=== PATIENT | female | born 1945 | race Caucasian/White ===

== ENCOUNTER → 2018-09-17 12:40 | Outpatient (CLI) | payer OTHER, SELFPAY | PROVIDERS: PCP Nurse Practitioner Family; Visit Provider Nurse Practitioner Family | DX: M81.0 Age-related osteoporosis without current pathological fracture (principal); Z78.0 Asymptomatic menopausal state; E07.9 Disorder of thyroid, unspecified; Z82.62 Family history of osteoporosis; Z87.891 Personal history of nicotine dependence | CPT/HCPCS: 77080 ==

== ENCOUNTER → 2018-12-09 10:55 | Outpatient (CLI) | payer OTHER, SELFPAY ==
--- NOTE | 2018-12-09 | DI.MG.S_ITS ---
BILATERAL DIGITAL SCREENING MAMMOGRAM 3D/2D WITH CAD: 12/09/2018 CLINICAL: Routine screening. Comparison is made to exams dated: 01/02/2017 mammogram, 08/19/2012 mammogram, and 08/17/2011 mammogram - [facility]. The tissue of both breasts is heterogeneously dense. This may lower the sensitivity of mammography. Current study was also evaluated with a Computer Aided Detection (CAD) system. No significant masses, calcifications, or other findings are seen in either breast. There has been no significant interval change. IMPRESSION: NEGATIVE There is no mammographic evidence of malignancy. A 1 year screening mammogram is recommended. This exam was interpreted at Station ID: [id number]. NOTE: For mammograms, a report in lay terms will be sent to the patient. Approximately 15% of breast malignancies will not be visualized mammographically. In the management of a palpable breast mass, a negative mammogram must not discourage biopsy of a clinically suspicious lesion. Electronically Signed By: Keaton mejia/gosia:12/09/2018 12:12:54 letter sent: Normal Exam ACR BI-RADS Category 1: Negative [id number]
== END ==
PROVIDERS: PCP Nurse Practitioner Family; Visit Provider Nurse Practitioner Family
DX: Z12.31 Encounter for screening mammogram for malignant neoplasm of breast (principal)
CPT/HCPCS: 77063; 77067

== ENCOUNTER → 2018-12-16 08:22 | Outpatient (CLI) | payer OTHER, SELFPAY ==
[2018-12-16 09:25] LABS: Albumin 4.7 g/dL (3.5-5.0); Estimated Glomerular Filt Rate > 60.0 mL/min (>60)
[2018-12-16 10:57] LABS: Vitamin D 25 Hydroxy (D3) 66.9 ng/mL (30.0-100.0)
[2018-12-16 11:06] LABS: Free T4, Direct Thyroxine 1.26 ng/dL (0.78-2.19)
[2018-12-16 12:16] LABS: Collection Time Urine 24 Hours; Creatinine Urine Random 55.3 mg/dL; Patient Height Urine 68 inches; Patient Weight Urine 152 lbs; Total Volume Urine 1950 mL
[2018-12-16 15:24] LABS: Creat Clearance, Corrected 89.3 mL/MIN; Creatinine Clearance Urine 93.6 mL/MIN
[2018-12-16 15:57] LABS: Calcium 24 Hour Urine 228 mg/day (100-300); Calcium Urine Random 11.7; Collection Time Urine 24 Hours; Total Volume Urine 1950 mL
[2018-12-18 13:44] LABS: Ionized Calcium 5.2 mg/dL (4.8-5.6)
[2018-12-18 16:54] LABS: N-Telopeptide Serum < 3.4 nM BCE (6.2-19.0)
[2018-12-20 15:45] LABS: Parathyroid Hormone Int 13 pg/mL (14-64)
== END ==
PROVIDERS: Family Provider Nurse Practitioner Family; PCP Nurse Practitioner Family; Visit Provider Internal Medicine Endocrinology, Diabetes & Metabolism
DX: M81.0 Age-related osteoporosis without current pathological fracture (principal); E03.9 Hypothyroidism, unspecified
CPT/HCPCS: 36415; 82040; 82306; 82310; 82330; 82340; 82523; 82565; 82575; 83970; 84439; 84443

== ENCOUNTER → 2019-04-15 09:33 | Outpatient (CLI) | payer OTHER, SELFPAY ==
--- NOTE | 2019-04-15 10:14 | DI.CT.S_ITS ---
PROCEDURE: CT ABDOMEN W CON INDICATIONS: Epigastric pain TECHNIQUE: After the administration of oral and intravenous contrast, 5 mm thick sections acquired from the diaphragms to the iliac crests. 5 mm thick coronal and sagittal reformats were acquired. For radiation dose reduction, the following was used: automated exposure control, adjustment of mA and/or kV according to patient size. COMPARISON: None. FINDINGS: Image quality: Excellent. Lung bases: Lung bases are clear. Heart size is normal. Solid organs: Liver is normal in size and enhancement. Gallbladder appears normal. Biliary system is non dilated. Pancreas enhances normally. Spleen is normal in size and enhancement. No adrenal nodules. Kidneys are normal in size, without hydronephrosis. Peritoneum and bowel: Contrast enhanced bowel loops appear normal in caliber. No free fluid or air. Nodes and vessels: No retroperitoneal or mesenteric adenopathy by size criteria. Aorta and inferior vena cava are normal in size. Bones: No suspicious bony lesions. No vertebral body compression fractures. Miscellaneous: No ventral hernias. IMPRESSION: The large and small bowel visualized appears normal. The pancreas appears free of mass or inflammation. No urinary tract abnormality is seen. Overall, a source of epigastric pain is not identified by this examination. Dictated by: Haja Yates M.D. on 04/15/2019 at 13:25 Approved by: Haja Yates M.D. on 04/15/2019 at 13:27
== END ==
PROVIDERS: Family Provider Nurse Practitioner Family; PCP Nurse Practitioner Family; Referring Provider Internal Medicine; Visit Provider Internal Medicine
DX: R10.13 Epigastric pain (principal)
CPT/HCPCS: 74170; Q9967

== ENCOUNTER 2019-07-29 10:55 | Emergency (ER) | payer OTHER, SELFPAY ==
[2019-07-29 11:05] VITALS: BP 118/59; PULSE 85; RESP 20; TEMP 36.3; O2SAT 98; BMI 24.3
--- NOTE | 2019-07-29 11:07 | DI.CT.S_ITS ---
PROCEDURE: CT HEAD/BRAIN WO CON INDICATIONS: fall, landed on head and right elbow TECHNIQUE: Noncontrast 4.5 mm thick angled axial sections acquired from the foramen magnum to the vertex, with coronal and sagittal reformats. For radiation dose reduction, the following was used: automated exposure control, adjustment of mA and/or kV according to patient size. COMPARISON: None. FINDINGS: Image quality: Excellent. CSF spaces: Basal cisterns are patent. No extra-axial fluid collections. The ventricles are symmetric in size and shape. Brain: No intracranial bleeds or masses. There is cerebral volume loss for age. There are minimal periventricular and deep white matter chronic small vessel ischemic changes. There is intracranial internal carotid artery atherosclerosis. Skull and face: Calvarium and visualized facial bones appear intact, without suspicious lesions. Sinuses: Visualized sinuses and mastoids are clear. IMPRESSION: 1. No acute intracranial abnormalities. No intracranial bleed or skull fracture. Dictated by: Marlena Neri M.D. on 07/29/2019 at 11:23 Approved by: Marlena Neri M.D. on 07/29/2019 at 11:27
--- NOTE | 2019-07-29 11:07 | DI.RAD.S_ITS ---
PROCEDURE: XR ELBOW RT MIN 3V INDICATIONS: fall, landed on head and right elbow TECHNIQUE: 4 views of the elbow were acquired. COMPARISON: None. FINDINGS: Bones: There is an impacted and comminuted radial head fracture. No dislocation is evident. No additional fractures are appreciated. Soft tissues: A moderate-sized elbow joint effusion is present. No suspicious soft tissue calcifications. IMPRESSION: Impacted radial head fracture. Dictated by: Everette Cardona M.D. on 07/29/2019 at 10:28 Approved by: Everette Cardona M.D. on 07/29/2019 at 10:30
--- NOTE | 2019-07-29 11:45 | ED_ITS ---
HPI - Fall <ANN CastilloCITIZENS BAPTIST - Last Filed: 07/29/19 15:44> General Chief Complaint: Fall Stated Complaint: Fell on sidewalk,hurt right elbow and head Time Seen by Provider: 07/29/19 11:29 Source: patient Mode of arrival: Ambulatory Limitations: no limitations History of Present Illness HPI Narrative: The patient is a 74-year-old female former smoker who denies pertinent medical history presents with a chief complaint of a ground level fall. She states she was working in her garden, tripped on a rock, landed on her left arm and then hit her head on pavement. She did not lose consciousness, but felt very woozy, lightheaded and nauseous with no vomiting after the incident. She denies any neck pain or back pain. She denies any numbness or tingling. She does have a small laceration above her right eye. She states that her right elbow hurts and she cannot fully extend it. She has not taken anything for pain does not want anything for pain at this point time. She denies any chest pain, shortness of breath or hip pain. She ambulated into the emergency department on her own accord. She state her vision is fine. Her nausea has resolved. Modified trauma was activated on the patient given her age and mechanism of injury Related Data Previous Rx's Medication Instructions Recorded hydrocodone-acetaminophen [Upton] 1 tab PO Q4-6H PRN #10 tab 07/29/19 Review of Systems <MORENITA Castillo - Last Filed: 07/29/19 15:44> Review of Systems Narrative: GENERAL: Denies chills, fatigue, malaise, fever, sweats. HEENT: Denies sinus pain, ear pain, sore throat, difficulty swallowing, d izziness. RESPIRATORY: Denies dyspnea, cough, wheezing, hemoptysis, sputum. CARDIOVASCULAR: Denies chest pain, palpitations, orthopnea, edema, GASTROINTESTINAL: Denies nausea, vomiting, abdominal pain, diarrhea, constipation, melena. : Denies dysuria, frequency, incontinence, hematuria, urinary retention. MUSCULOSKELETAL: See HPI SKIN: See HPI NEUROLOGIC: See HPI PSYCHIATRIC: No concerning psychosocial issues. 12 point review of systems is negative except for those stated above Patient History <MORENITA Castillo - Last Filed: 07/29/19 15:44> Social History Smoking Status: Former smoker Smoking Status: Former smoker alcohol intake frequency: holidays/special occasions only Substance Use Type: does not use Exam <LAQUITA Castillo - Last Filed: 07/29/19 15:44> Narrative Exam Narrative: GENERAL: This is a well-nourished, well-developed patient, in no acute distress HEAD: Atraumatic. Normocephalic. No temporal or scalp tenderness. EYES: Pupils equal round and reactive. Extraocular motions intact. No scleral icterus. No injection or drainage. ENT: Nose without bleeding, purulent drainage or septal hematoma. Airway patent. NECK: Trachea midline. No JVD or lymphadenopathy. Supple, nontender, no me ningeal signs. CARDIOVASCULAR: Regular rate and rhythm RESPIRATORY: Clear to auscultation. Breath sounds equal bilaterally. No wheezes, rales, or rhonchi. No cough. No increased respiratory effort. No accessory muscle use. GASTROINTESTINAL: Abdomen soft, non-tender, nondistended. No hepato- splenomegaly, or palpable masses. No guarding. EXTREMITIES: General pain to palpation right elbow. Decreased flexion and extension right elbow. No pain to palpation right shoulder, clavicle wrist or hand. No snuffbox tenderness to palpation. BACK: Nontender without deformity or crepitance. No flank tenderness. No pain to CT or L-spine palpation. NEURO: AOx3. SKIN: 2 mm laceration noted lateral to right eye. Cleansed and dressed by nursing Steri-Strips. Initial Vital Signs Initial Vital Signs: Vital Signs Temperature 97.3 F L 07/29/19 11:05 Pulse Rate 85 07/29/19 11:05 Respiratory Rate 07/29/19 11:05 Blood Pressure 118/59 L 07/29/19 11:05 Pulse Oximetry 98 07/29/19 11:05 <Malissa Clinton DO - Last Filed: 07/29/19 19:23> Initial Vital Signs Initial Vital Signs: Vital Signs Temperature 97.3 F L 07/29/19 11:05 Pulse Rate 85 07/29/19 11:05 Respiratory Rate 07/29/19 11:05 Blood Pressure 118/59 L 07/29/19 11:05 Pulse Oximetry 98 07/29/19 11:05 Procedures <Claudia MORENITA Galo - Last Filed: 07/29/19 15:44> Orthopedic Splinting/Casting Injury #1: Side: right Upper Extremity Injury Location: elbow Upper Extremity Immobilizer: sling/shoulder immobilizer and posterior splint Post splinting neuro exam: intact Post splinting vascular exam: intact Scores <Claudia LAQUITA Galo - Last Filed: 07/29/19 15:44> GCS Melquiades coma scale eye opening: Spontaneous Melquiades coma scale verbal response: Orientated Rogers coma scale motor response: Obey commands Melquiades coma scale total score: 15 Nexus Score for C-Spine Focal Neurologic deficit present: No Midline spinal tenderness present: No Altered level of conciousness present: No Intoxication present: No Distracting Injury Present: No Nexus Criteria for C-spine: 0 Course <Claudia LAQUITA Galo - Last Filed: 07/29/19 15:44> Orders Ordered: ED Orders 07/29/19 11:07 CT head/brain wo con Stat XR elbow RT min 3V Stat 07/29/19 13:57 CT UE RT wo con Stat Discontinued Medications Hydrocodone Bitart/Acetaminophen (Upton 5/325) 1 tab PO NOW ONE Stop: 07/29/19 13:45 Last Admin: 07/29/19 14:04 Dose: 1 tab Documented by: TOMASZ Diphtheria/Tetanus/Acell Pertussis (Adacel) 0.5 ml IM .ONCE ONE Stop: 07/29/19 11:38 Last Admin: 07/29/19 12:32 Dose: 0.5 ml Documented by: TOMASZ Vital Signs Vital signs: Vital Signs - 8 hr 07/29/19 12:08 07/29/19 12:38 07/29/19 14:00 Pulse Rate 87 69 72 Respiratory Rate 14 12 17 Blood Pressure [Right Arm] 99/55 L 101/59 L 118/59 L Pulse Oximetry 96 96 100 <Malissa Clinton DO - Last Filed: 07/29/19 19:23> Orders Ordered: ED Orders 07/29/19 11:07 CT head/brain wo con Stat XR elbow RT min 3V Stat 07/29/19 13:57 CT UE RT wo con Stat Discontinued Medications Hydrocodone Bitart/Acetaminophen (Upton 5/325) 1 tab PO NOW ONE Stop: 07/29/19 13:45 Last Admin: 07/29/19 14:04 Dose: 1 tab Documented by: TOMASZ Diphtheria/Tetanus/Acell Pertussis (Adacel) 0.5 ml IM .ONCE ONE Stop: 07/29/19 11:38 Last Admin: 07/29/19 12:32 Dose: 0.5 ml Documented by: TOMASZ Vital Signs Vital signs: Vital Signs - 8 hr 07/29/19 12:08 07/29/19 12:38 07/29/19 14:00 Pulse Rate 87 69 72 Respiratory Rate 14 12 17 Blood Pressure [Right Arm] 99/55 L 101/59 L 118/59 L Pulse Oximetry 96 96 100 MDM - Fall <MORENITA CastilloBC - Last Filed: 07/29/19 15:44> Imaging Data CT scan - head: Radiologist's Impression: [address] [place] [id number] Scan Report Signed Patient: Otilia Saavedra#: [id number] : 7Acct:[id number] Age/Sex: 74 / FDate of Service: 07/29/19 Loc: ED Accession Number: [id number] Procedure: CT head/brain wo con Ordering Provider: Malissa Clitnon D.O. PROCEDURE: CT HEAD/BRAIN WO CON INDICATIONS: fall, landed on head and right elbow TECHNIQUE: Noncontrast 4.5 mm thick angled axial sections acquired from the foramen magnum to the vertex, with coronal and sagittal reformats. For radiation dose reduction, the following was used: automated exposure control, adjustment of mA and/or kV according to patient size. COMPARISON: None. FINDINGS: Image quality: Excellent. CSF spaces: Basal cisterns are patent. No extra-axial fluid collections. The ventricles are symmetric in size and shape. Brain: No intracranial bleeds or masses. There is cerebral volume loss for age. There are minimal periventricular and deep white matter chronic small vessel ischemic changes. There is intracranial internal carotid artery atherosclerosis. Skull and face: Calvarium and visualized facial bones appear intact, without suspicious lesions. Sinuses: Visualized sinuses and mastoids are clear. IMPRESSION: 1. No acute intracranial abnormalities. No intracranial bleed or skull fracture. Dictated by: Marlena Neri M.D. on 07/29/2019 at 11:23 Approved by: Marlena Neri M.D. on 07/29/2019 at 11:27 Extremity x-ray #1: Radiologist's Impression: [address] [place] [id number] XRay Report Signed Patient: Otilia Saavedra#: [id number] : 7At:[id number] Age/Sex: 74 / FDate of Service: 07/29/19 Loc: ED Accession Number: [id number] Procedure: XR elbow RT min 3V Ordering Provider: Malissa Clinton D.O. PROCEDURE: XR ELBOW RT MIN 3V INDICATIONS: fall, landed on head and right elbow TECHNIQUE: 4 views of the elbow were acquired. COMPARISON: None. FINDINGS: Bones: There is an impacted and comminuted radial head fracture. No dislocation is evident. No additional fractures are appreciated. Soft tissues: A moderate-sized elbow joint effusion is present. No suspicious soft tissue calcifications. IMPRESSION: Impacted radial head fracture. Dictated by: Everette Cardona M.D. on 07/29/2019 at 10:28 Approved by: Everette Cardona M.D. on 07/29/2019 at 10:[address]: Radiologist's Impression: [address] [place] [id number] Scan Report Signed Patient: Otilia Saavedra#: [id number] : 7Acct:[id number] Age/Sex: 74 / FDate of Service: 07/29/19 Loc: ED Accession Number: [id number] Procedure: CT UE RT wo con Ordering Provider: Claudia Galo PROCEDURE: CT UE RT WO CON INDICATIONS: complex radial fx TECHNIQUE: Noncontrast 3 mm axial sections acquired of the right elbow, with coronal and sagittal reformats. COMPARISON: [facility], , XR ELBOW RT MIN 3V, 07/29/2019, 10:59. FINDINGS: Image quality: Excellent. Bones: There is a comminuted fracture of the radial head with displacement and impaction. In addition, there is a prominent fracture of the capitellum with no significant displacement. Soft tissues: There is soft tissue edema. There is [id number] elbow effusion. IMPRESSION: 1. Comminuted fracture of the radial head with displacement and impaction. 2. Comminuted nondisplaced fracture of the capitellum. 3. Small to moderate elbow joint effusion. Dictated by: Marlena Neri M.D. on 07/29/2019 at 14:38 Approved by: Marlena Neri M.D. on 07/29/2019 at 14:56 MDM Narrative Medical decision making narrative: The patient is a 74-year-old female who presents with a chief complaint of elbow pain and hitting her head after ground level trip and fall today. Her head CT is negative, however I do believe she has a concussion given her symptoms of nausea, no vomiting and slight dizziness. I discussed at length brain rest. Her elbow was found to have a complex radial head fracture, I spoke with Dr. Bone from [facility] who kindly viewed the films and requested a CT. This was ordered accordingly. The patient was placed in a posterior splint and given a sling. She felt much improved after the pain medication given as documented. I discussed at length the importance of following up with primary care provider as well as Dr. Bone. Discussed coming back to the ER for any acute concerns. Patient has no questions or concerns upon discharge and states understanding of return precautions as well as follow-up care Discharge Plan Departure Patient Disposition: Home Clinical Impression: Fall from ground level, Laceration Concussion without loss of consciousness Qualifiers: Encounter type: initial encounter Qualified Code(s): S06.0X0A - Concussion without loss of consciousness, initial encounter Fracture of head of right radius Qualifiers: Encounter type: initial encounter Fracture type: closed Fracture alignment: displaced Qualified Code(s): S52.121A - Displaced fracture of head of right radius, initial encounter for closed fracture Discharge Date/Time: 07/29/19 15:06 Instructions: How to Use a Sling, DI for Concussion, DI for Elbow Fracture, DI for Laceration Repair Steri-Strips, How To Perform RICE (Rest, Ice, Compress, Elevate), How to Prevent Falls, How to Take Care of Your Splint Activity Restrictions/Additional Instructions: Thank you for trusting us with your care today I am sorry that you are injured. We placed a Steri-Strip on your laceration, updated your tetanus, found an elbow fracture, and did a CT scan of your head. This has no acute bleeding but I do believe you have a concussion given her symptoms Please follow-up with Dr. Bone from [facility] regarding your elbow fracture. I have included her contact information in this handout. Please use rest ice compression elevation. I sent a prescription of hydrocodone with acetaminophen to [facility]. I have given you a prescription of a narcotic for pain. Be aware that this can be constipating and sedating. I encouraged taking with a stool softener, pushing fluids and fiber. Do not take and drive, operate heavy machinery, etc. Do not combine it with any other sedating substances such as alcohol. The combination of narcotics and alcohol and/or other sedatives can be lethal. Please come back to the emergency department for any acute concerns. I also suggest following up with primary care provider Prescriptions: New hydrocodone-acetaminophen [Upton] 5-325 mg tablet 1 tab PO Q4-6H PRN (Reason: pain) Qty: 10 RF: 0 Referrals: [facility] [Provider Group] Caitlin Kumar ARNP [Primary Care Provider] - Melissa Bone MD [Physician] - <Malissa Clinton DO - Last Filed: 07/29/19 19:23> [facility] I was immediately available in the department for consultation. Documentation has been reviewed. I agree with assessment and plan.
[2019-07-29 12:08] VITALS: BP 99/55; PULSE 87; RESP 14; O2SAT 96
[2019-07-29] MEDS: TET,DIPH,PERTUSS(ACELL),VAC/PF 0.5 ML SYRINGE IM (12:32)
[2019-07-29 12:38] VITALS: BP 101/59; PULSE 69; RESP 12; O2SAT 96
--- NOTE | 2019-07-29 12:45 | PC.NURSE ---
patient in room. wound has been cleaned and dressed with a steri strip. It is no longer bleeding.
--- NOTE | 2019-07-29 13:57 | DI.CT.S_ITS ---
PROCEDURE: CT UE RT WO CON INDICATIONS: complex radial fx TECHNIQUE: Noncontrast 3 mm axial sections acquired of the right elbow, with coronal and sagittal reformats. COMPARISON: [facility], CR, XR ELBOW RT MIN 3V, 07/29/2019, 10:59. FINDINGS: Image quality: Excellent. Bones: There is a comminuted fracture of the radial head with displacement and impaction. In addition, there is a prominent fracture of the capitellum with no significant displacement. Soft tissues: There is soft tissue edema. There is jyphh-er-llvyznfa elbow effusion. IMPRESSION: 1. Comminuted fracture of the radial head with displacement and impaction. 2. Comminuted nondisplaced fracture of the capitellum. 3. Small to moderate elbow joint effusion. Dictated by: Marlena Neri M.D. on 07/29/2019 at 14:38 Approved by: Marlena Neri M.D. on 07/29/2019 at 14:56
[2019-07-29 14:00] VITALS: BP 118/59; PULSE 72; RESP 17; O2SAT 100
[2019-07-29] MEDS: HYDROCODONE/ACET 5/325 TABLET 1 TAB PO (14:04)
== END 2019-07-29 15:06 | disposition home or self-care (01) ==
PROVIDERS: Emergency Provider Nurse Practitioner Family; Family Provider Nurse Practitioner Family; PCP Nurse Practitioner Family
DX: S06.0X0A Concussion without loss of consciousness, initial encounter (principal); S52.121A Displaced fracture of head of right radius, initial encounter for closed fracture; S01.111A Laceration without foreign body of right eyelid and periocular area, initial encounter; M25.521 Pain in right elbow; W01.0XXA Fall on same level from slipping, tripping and stumbling without subsequent striking against object, initial encounter; Z23 Encounter for immunization
CPT/HCPCS: 29105; 70450; 73080; 73200; 90471; 99284; 90715

== ENCOUNTER → 2019-08-01 10:12 | Outpatient (CLI) | payer OTHER, SELFPAY ==
[2019-08-01 11:35] LABS: Add Manual Diff / Slide Review NO; Basophils Absolute Auto 0 /uL (0-100); Basophils Percent Auto 0.4 % (0-2); Eosinophils Absolute Auto 300 /uL (0-450); Eosinophils Percent Auto 3.4 % (2-4); Hematocrit 37.3 % (36-46); Hemoglobin 12.8 g/dL (12.0-16.0); Lymphocytes Absolute Auto 1000 /uL (1100-4500); Lymphocytes Percent Auto 13.5 % (25-40); Mean Corpuscular HGB Conc 34.4 % (30-36); Mean Corpuscular Hemoglobin 30.7 PG (26-34); Mean Corpuscular Volume 89.1 fL (80-100); Monocytes Absolute Auto 700 /uL (0-900); Monocytes Percent Auto 8.8 % (3-14); Neutrophils Absolute Auto 5500 /uL (1500-7000); Neutrophils Percent Auto 73.9 % (50-75); Platelet Count 268 X10^3/uL (150-400); Red Blood Cell Count 4.19 X10^6/uL (4.0-5.2); Red Cell Distribution Width 13.3 % (11.6-14.8); White Blood Cell Count 7.5 X10^3/uL (4.5-11.0)
[2019-08-01 12:06] LABS: Blood Urea Nitrogen 18 mg/dL (7-17); Calcium 9.4 mg/dL (8.4-10.2); Carbon Dioxide 31 mmol/L (22-32); Chloride 101 mmol/L (98-107); Estimated Glomerular Filt Rate > 60.0 mL/min (>60); Glucose 96 mg/dL (80-110); HEMOLYSIS < 15 (0-50); Potassium 4.9 mmol/L (3.4-5.1); Sodium 136 mmol/L (137-145)
== END ==
PROVIDERS: Family Provider Nurse Practitioner Family; PCP Nurse Practitioner Family; Referring Provider Orthopaedic Surgery; Visit Provider Orthopaedic Surgery
DX: Z01.818 Encounter for other preprocedural examination (principal); Z01.812 Encounter for preprocedural laboratory examination
CPT/HCPCS: 36415; 80048; 85025; 93005

== ENCOUNTER → 2019-08-05 15:17 | Outpatient (CLI) | payer OTHER, SELFPAY ==
[2019-08-06 12:18] LABS: COVID19 Sendout Not Detected (Not Detect)
== END ==
PROVIDERS: Family Provider Nurse Practitioner Family; PCP Nurse Practitioner Family; Visit Provider Physician Assistant
DX: Z01.812 Encounter for preprocedural laboratory examination (principal)
CPT/HCPCS: 87635

== ENCOUNTER 2019-08-08 08:38 | Day surgery (SDC) | payer OTHER, SELFPAY ==
[2019-08-05 14:57] VITALS: BMI 24.5
[2019-08-08] VITALS (11 sets, daily range): BP systolic 108–138; BP diastolic 47–70; PULSE 67–80; RESP 10–16; TEMP 35.8–36.8; O2SAT 92–99; BMI 24.5
--- NOTE | 2019-08-08 | DI.RAD.S_ITS ---
PROCEDURE: XR ELBOW RT MIN 3V INDICATIONS: ELBOW REPAIR TECHNIQUE: 3 views of the elbow were acquired. COMPARISON: [facility], CT, CT UE RT WO CON, 07/29/2019, 13:53. [facility], CR, XR ELBOW RT MIN 3V, 07/29/2019, 10:59. FINDINGS: Bones: Interval radial head miracle-prosthesis. Prosthesis is in expected position. Capitellar fracture seen on the CT is not well appreciated. No dislocations. No suspicious bony lesions. Soft tissues: Elbow joint effusion is present. Postsurgical change. IMPRESSION: Satisfactory appearance of the radial head miracle-prosthesis. Dictated by: Joseph Raymundo M.D. on 08/08/2019 at 13:09 Approved by: Joseph Raymundo M.D. on 08/08/2019 at 13:12
--- NOTE | 2019-08-08 09:17 | SUR.PREOP ---
states that her depression is doing well since she began medication many years ago; states she is happier as she gets older, ie lack of work related stresses.
[2019-08-08] MEDS: LACTATED RINGERS 1,000 ML 42 ML IV ×2 (09:19→13:17)
--- NOTE | 2019-08-08 09:47 | PM.PREOP ---
Pre-operative Note COVID-19 COVID-19 status: Negative Interval Note History & Physical reviewed/Exam performed by Physician: Yes Changes to H&P: No H&P completed within 30 days and has changed as indicated here:: review procedure, PAR and concerns regarding secondary OA or rodent exterminator possibility of needing revision surgery
--- NOTE | 2019-08-08 09:48 | PM.OP.1 ---
Operative Date/Time/Diagnoses Date of procedure: 08/08/19 Time of procedure: 09:59 Pre-op diagnosis: severely comminuted radial head fracture Post-op diagnosis: same Procedure & Clinicians Procedure: Right radial head hemiarthroplasty Same procedure as scheduled: Yes Indications: This is 74-year-old female who fell on her outstretched right hand and sustained a severely comminuted right radial head fracture with multiple fragments and gross displacement. She is brought to the operating room for possible open reduction internal fixation or possible hemiarthroplasty. We discussed comminuted nature of her fracture concerns regarding procedure alternatives risks benefits and complications including possible nerve injury or neurapraxia, risk for infection, risk for progressive arthritis at the radial capitellar joint and concerns regarding radial head replacement. She consents to surgery is brought to the operating room for repair is needed.. Surgeon: Melissa Bone Supervisor Metal Placing: Kaila Valderrama Anesthesia Type: General Operative Notes Findings: Severely comminuted and grossly displaced radial head fracture. There was 1 fragment that was approximately 50% of the radial head which was grossly displaced and jammed in the joint and angulated about 90? from anatomic position. There was good reduction and a stable elbow was achieved with a radial head replacement. Closure Type: primary Specimen(s): none sent Prosthetic devices, grafts, tissues, transplants, or devices: Acumed radial head replacement 8mm stem, +0, 24 right head Estimated Blood Loss (mL): 100 Blood products transfused: none Tourniquet time (min): 80 Procedure in detail: Patient is brought to the operating room and a time-out was performed. She was given IV antibiotics. Patient's right upper extremity is prepped draped standard sterile fashion. Sterile high arm tourniquet was applied and elevated to 250 mm of mercury for approximately 80 minutes. Lateral skin incision was made from the lateral epicondyle and then dissected distally down towards the ulna about a 5 cm incision was made dissection was carried out through skin and subcutaneous tissues. The interval between the anconeus and the extensor carpi tendon was identified. On the muscles and we spread dissection was carried out down to the capsule. The capsule a portion the anconeus was carefully released posteriorly from the capsule. Capsule was incised. There was a large fragment of the radial head which was laterally subluxed and dislocated on and about 90? from the main fracture fragment. This was carefully removed. Next as there is good visualization of the radial head and I specifically on removed all fragments of the radial head as well as on an checked along the capitellum for any injury to the capitellum. There was some minor posterior articular cartilage damage the capitellum but it was not severe. There were multiple radial head fragments majority of which ruled were free. I a on meticulously removed them and then used a saw to slightly freshened the radial cut in order to optimize contact between the radial head prosthesis and then proximal radial neck. I checked the extension get extension gap it was about 10 mm which was felt to be desired for a +0 neck length. Minimal dissection was carried out down along the radial shaft. The fracture was basically proximal to the annular ligament and no on capsule was stripped more distally. A adriano was placed on the radial shaft in line with Andrade's tubercle for optimally lining that replacement component. Very gentle retraction was performed in order to allow visualization of the proximal radius. We specifically attempted not to retract significantly over the anterior aspect of the radius in order to preserve radial nerve and posterior interosseous nerve function. Starter awl was used in the proximal radius. Gently grasped the grass the radius and also use the radial elevator to attempt to slightly deviated radius in order to allow a straighter shot into the shaft. Very gentle retraction was performed. The radius on was hand reamed up to a size 8. The co planer case was also used to further smooth the radial neck. The radial head pieces were reconstructed on the posterior table and it was very close to a 24 mm radial head. It looked between 24 and 25 mm radial head. Trial reduction with had 8 stem and a +0 24 mm head showed excellent range of motion and good stability. We also took intraoperative x-rays looking at the position of the stem height to the radial head and the alignment of the elbow overall. Looked like the length of the radius was appropriate in the joint was not overstuffed. I specifically ran the patient's area full range of motion both pronation supination full extension full flexion and attempted radial and ulnar deviation and there is no evidence of instability. The trial component was carefully removed by gently maximally pronating the elbow flexing it and ulnarly deviating it. Final implant was opened and the wound was meticulously irrigated with normal saline high recheck to the orientation of Andrade's tubercle in the adriano on the proximal radius and meticulously placed the radial head prosthesis with very gentle tapping. The elbow was reduced without difficulty. Final x-ray check and range of motion check showed excellent range of motion and good stability. The wound was meticulously irrigated with normal saline. Marcaine was injected throughout the wound and throughout the capsule. Wound was closed with interrupted Vicryl and a running Monocryl and Steri-Strips. A sterile soft dressing was applied. Patient tolerated procedure well she was transferred recovery room in satisfactory condition. Complications: none Post-operative Condition: stable Disposition: same day surgery Plan for aftercare: Okay to begin immediate elbow range of motion exercises. No heavy lifting. If okay to do wrist range of motion exercises. Return to clinic next week for x-rays and wound check.
[2019-08-08] MEDS: CEFAZOLIN 2 GM/100 ML FROZ.PIGGY IV (10:12)
--- NOTE | 2019-08-08 10:36 | SUR.OPER ---
Supine on padded OR bed, head on pillow, arms secured on padded arm boards at <90 degrees abduction, legs uncrossed, safety belt at thigh, tape over blanket over lower legs.
[2019-08-08] MEDS: BUPIVACAINE 0.5% (PF) VIAL 30 ML INJ (10:49)
[2019-08-08] MEDS: ACETAMINOPHEN IV 1,000 MG/100 ML VIAL 400 MG IV (11:00)
--- NOTE | 2019-08-08 12:04 | SUR.OPER ---
MINI JUDE TIME 1.46
[2019-08-08] MEDS: KETOROLAC 30 MG/ML VIAL 15 MG IV (12:39)
[2019-08-08] MEDS: fentaNYL 100 MCG/2 ML INJ IV ×2 (12:43→12:47)
[2019-08-08] MEDS: ONDANSETRON 4 MG/2 ML INJ IV (12:45)
[2019-08-08] MEDS: OXYCODONE IR 5 MG TABLET PO ×2 (12:49→13:15)
[2019-08-08] MEDS: HYDROMORPHONE 2 MG INJ IV ×6 (12:52→13:17)
--- NOTE | 2019-08-08 14:28 | SUR.PHASEII ---
Waiting for Dr. Bone to write a prescription for pt, Susana her compressed air pile driver operator called and arrived- supportive.
--- NOTE | 2019-08-08 15:15 | SUR.PHASEII ---
Dr. Bone available to write prescription. Pt dressed and left when ready and left in stable condition.
== END 2019-08-08 15:15 | disposition home or self-care (01) ==
PROVIDERS: Referring Provider Orthopaedic Surgery; Visit Provider Orthopaedic Surgery
PROC: 0RSL04Z Reposition Right Elbow Joint with Internal Fixation Device, Open Approach (ICD-10-PCS; CPT 24366; principal; 2019-08-08 10:15)
DX: S52.121A Displaced fracture of head of right radius, initial encounter for closed fracture (principal); W18.39XA Other fall on same level, initial encounter; Y93.K1 Activity, walking an animal; M81.0 Age-related osteoporosis without current pathological fracture; F32.9 Major depressive disorder, single episode, unspecified; J44.9 Chronic obstructive pulmonary disease, unspecified
CPT/HCPCS: 24366; 73080; J0131; J0690; J1100; J1170; J1885; J2405; J2704; J3010

== ENCOUNTER → 2019-09-01 14:06 | Outpatient (CLI) | payer OTHER, SELFPAY ==
--- NOTE | 2019-09-01 | DI.RAD.S_ITS ---
PROCEDURE: XR CHEST 2V INDICATIONS: SOB/COPD TECHNIQUE: 2 views of the chest were acquired. COMPARISON: None. FINDINGS: Surgical changes and devices: None. Lungs and pleura: Lungs are clear. No pleural effusions or pneumothorax. Mediastinum: Mediastinal contours are normal. Heart size is normal. Bones and chest wall: No suspicious bony abnormalities. Soft tissues appear unremarkable. IMPRESSION: No acute cardiopulmonary process demonstrated radiographically. Dictated by: Feliz Azul M.D. on 09/01/2019 at 14:23 Approved by: Feliz Azul M.D. on 09/01/2019 at 14:24
== END ==
PROVIDERS: PCP Internal Medicine; Referring Provider Internal Medicine; Visit Provider Internal Medicine
DX: R06.02 Shortness of breath (principal); J44.9 Chronic obstructive pulmonary disease, unspecified
CPT/HCPCS: 71046

== ENCOUNTER → 2019-09-16 09:57 | Outpatient (CLI) | payer OTHER, SELFPAY ==
[2019-09-17 01:51] LABS: COVID19 Sendout Not Detected (Not Detect)
== END ==
PROVIDERS: PCP Internal Medicine; Visit Provider Physician Assistant
DX: Z11.59 Encounter for screening for other viral diseases (principal)
CPT/HCPCS: 87635

== ENCOUNTER → 2019-09-19 08:56 | Outpatient (CLI) | payer OTHER, SELFPAY ==
--- NOTE | 2019-09-26 08:34 | PM.PFT.1 ---
Pulmonary Function Test Referral & Results Date Patient Seen: 09/19/19 Requesting provider: Aditi Steele Results: The spirometry demonstrates an FVC of 3.67 L which is 104% of predicted. The FEV1 was measured at 2.63 L which is 98 % of predicted. The FEV1/FVC ratio was 72 which is 95% of predicted. Following the administration of bronchodilator there was a 24% improvement in FEF 25-75%. Lung volumes show an SVC of 3.44 L which is 104% of predicted. The diffusing capacity was measured at 28.68 which is 92% of predicted. The maximum voluntary ventilation was normal Interpretation: This study demonstrates probably normal pulmonary function. The may be very very mild obstructive lung disease based on shape a flow volume curve as well as minimal improvement in small airway flow after bronchodilator as above with the improvement in the FEF 25-75% Clinical correlation suggested
== END ==
PROVIDERS: PCP Internal Medicine; Referring Provider Internal Medicine; Visit Provider Internal Medicine
DX: J44.9 Chronic obstructive pulmonary disease, unspecified (principal)
CPT/HCPCS: 94060; 94726; 94729

== ENCOUNTER → 2019-10-16 07:59 | Outpatient (CLI) | payer OTHER, SELFPAY ==
--- NOTE | 2019-10-16 08:09 | DI.ECHO.S_ITS ---
Echocardiogram Report + + :Name: MIGUEL HERRMANN Study Date: 10/16/2019 Height: 69 in : :[facility] Weight: 149 lb: : Gender: Female BSA: 1.8 m2 : :: 1945 Age: 74 yrs BP: 98/67 mmHg: :Reason For Study: DYSPNEA : :Ordering Physician: RICKY, : :EUSEBIO Performed By: Raine Soni : :Referring: EUSEBIO GARCÍA : + + Interpretation Summary The left ventricle is normal in size and wall thickness. The ejection fraction is estimated to be 40-45%. There is mild to moderate global hypokinesis of the left ventricle. Compared to the prior exam, the left ventricular function is reduced. The right ventricle is normal in size and function. The atrial septum is aneurysmal. There is no Doppler evidence for an interatrial shunt. There is mild tricuspid regurgitation. Compared to the prior echo exam, there has been no change in TR severity. The right ventricular systolic pressure is estimated to be at least 20 mmHg based on an estimated right atrial pressure of 3 mm Hg. Procedure: A two-dimensional transthoracic echocardiogram with color flow and Doppler was performed. The study quality was technically adequate. There is no prior echocardiogram noted for this patient. The patient was in sinus rhythm with heart rates between 69-76 bpm during the exam. The patient had occasional PVCs during the exam. The patient had frequent PACs during the exam. Left Ventricle: The left ventricle is normal in size and wall thickness. There is no thrombus. The ejection fraction is estimated to be 40-45%. Compared to the prior exam, the left ventricular function is reduced. There is mild to moderate global hypokinesis of the left ventricle. Diastolic parameters suggest a relaxation abnormality of the left ventricle, consistent with probable normal filling pressures. Right Ventricle: The right ventricle is normal in size and function. Atria: Both atria are normal in size. The left atrium has mildly decreased in size since the prior echo exam. Chiari network (normal variant) is noted. The atrial septum is aneurysmal. There is no Doppler evidence for an interatrial shunt. Mitral Valve: The mitral valve is normal in structure and function. There is trace mitral regurgitation. Aortic Valve: The aortic valve is trileaflet. The aortic valve opens well. There is no aortic valve stenosis. There is trace aortic regurgitation. Tricuspid Valve: The tricuspid valve is normal. The right ventricular systolic pressure is estimated to be at least 20 mmHg based on an estimated right atrial pressure of 3 mm Hg. There is mild tricuspid regurgitation. Compared to the prior echo exam, there has been no change in TR severity. Pulmonic Valve: The pulmonic valve is not well seen, but is grossly normal. There is trace pulmonic regurgitation. Great Vessels: The aortic root is normal size. The ascending aorta is at the upper limits of normal in size. The IVC is of normal diameter and collapses greater than 50% with a sniff. This suggests a low right atrial pressure of 3 mm Hg. Pericardium/ Pleura There is no pericardial effusion. There is no pleural effusion. MMode/2D Measurements & Calculations LVIDd: 4.9 cm LVOT diam: 2.3 cm LVIDs: 3.7 cm Ao root diam: 3.4 cm FS: 23.4 % asc Aorta Diam: 3.5 cm EPSS: 0.94 cm Ao Arch Diam (Prox Trans): 2.9 cm IVSd: 0.77 cm LVPWd: 0.62 cm LV roth. diameter/BSA (cm/m^2): 2.7 LV sys. diameter/BSA (cm/m^2): 2.0 LA A2 area: 17.3 cm2 RA long axis: 4.6 cm LA A4 area: 18.8 cm2 RA area: 11.2 cm2 LA length (vol): 4.9 cm RA vol: 23.0 ml LA vol: 55.8 ml RA : 12.6 ml/m2 LA vol index: 30.6 ml/m2 IVC diam: 1.9 cm RVD1 (basal): 3.4 cm TAPSE: 1.9 cm Doppler Measurements & Calculations Ao V2 max: 95.9 cm/sec LVOT Max Alden: 74.2 cm/sec Ao V2 mean: 67.2 cm/sec LV V1 max P.2 mmHg Ao max P.7 mmHg LV V1 VTI: 15.8 cm Ao mean P.1 mmHg RADHA(I,D): 3.2 cm2 Ao V2 VTI: 19.9 cm RADHA(V,D): 3.1 cm2 sev ratio: 0.79 RADHA indexed to BSA (cm^2/m^2): 1.7 MV E max alden: 54.9 cm/sec TR max alden: 195.8 cm/sec MV A max alden: 62.7 cm/sec TR max P.2 mmHg MV E/A: 0.88 PA V2 max: 49.1 cm/sec Med Peak E' Alden: 7.3 cm/sec PA V2 mean: 35.1 cm/sec E/E' med: 7.6 PA mean P.54 mmHg Lat Peak E' Alden: 8.8 cm/sec PA pr(Accel): 20.8 mmHg E/E' lat: 6.2 E/e' average: 6.9 MV dec time: 0.26 sec SV(LVOT): 63.5 ml Reading Physician:04:57 PM
== END ==
PROVIDERS: PCP Internal Medicine; Referring Provider Internal Medicine; Visit Provider Internal Medicine
DX: I07.1 Rheumatic tricuspid insufficiency (principal); R06.09 Other forms of dyspnea
CPT/HCPCS: 93306

== ENCOUNTER → 2019-11-01 13:05 | Outpatient (CLI) | payer OTHER, SELFPAY ==
[2019-11-03 09:19] LABS: COVID19 Sendout Not Detected (Not Detect)
== END ==
PROVIDERS: PCP Internal Medicine; Visit Provider Nurse Practitioner
DX: Z11.59 Encounter for screening for other viral diseases (principal)
CPT/HCPCS: 87635

== ENCOUNTER 2019-11-04 06:18 | Day surgery (SDC) | payer OTHER, SELFPAY ==
[2019-11-04] MEDS: PROPARACAINE 0.5% OPHTH SOL 2 DROPS EYE-OP (07:10)
[2019-11-04] MEDS: CATARACT EYE COMPOUND (10 DROPS/SYRINGE) 3 DROPS EYE-OP (07:12)
[2019-11-04 07:20] VITALS: BP 91/56; PULSE 54; RESP 16; TEMP 36.4; O2SAT 96; BMI 21.2
--- NOTE | 2019-11-04 07:33 | P.OP_ITS ---
Operative Date/Time/Diagnoses Pre-op diagnosis: Nuclear Cataract Left eye Post-op diagnosis: same Procedure & Clinicians Same procedure as scheduled: Yes Surgeon: Angel Campbell Anesthesia Type: MAC +/- and Sedation Operative Notes Procedure in detail: Patient brought to the operating suite. Tetracaine drops placed in the left eye. Patient was prepped and draped in sterile manner. Wire lid speculum was placed in the eye. Betadine drops were placed on the eye. This was irrigated. Lidocaine jelly was placed on the eye. A paracentesis port was created with a side-port blade. 0.1 mL 1% preservative free lidocaine was injected into the anterior chamber. The anterior chamber was deepened with viscoelastic. 2.6 mm keratome was used to create a temporal clear corneal incision. Cystotome and Utrata forceps were used to create continuous tear capsulorrhexis. Balanced salt solution was used to hydro dissect the nucleus. The phacoemulsification handpiece was inserted and the nucleus was removed using the stop and chop technique. The irrigation aspiration handpiece was inserted and the remaining cortex was removed. Anterior chamber was deepened with viscoe lastic. An Tapia ZCB00 intraocular lens with a power of 21.0 was injected into the capsular bag. Irrigation aspiration handpiece was inserted and the remaining viscoelastic was removed. Incision was hydrated with balanced salt solution and found to be leak free with pressure with Weck-Misty sponges. 0.1 mL Vigamox injected anterior chamber. 0.3 mL Kenalog 10 mg was injected subconjunctivally. Lid speculum was removed. The patient left the operating room in excellent condition. Complications: none Post-operative Condition: stable Disposition: same day surgery
--- NOTE | 2019-11-04 07:33 | PM.PREOP ---
Pre-operative Note Interval Note History & Physical reviewed/Exam performed by Physician: Yes Changes to H&P: No
[2019-11-04] MEDS: PHENYLEPHRINE/LIDOCAINE VIAL (OR) 0.2 ML EYE-OP (08:02)
[2019-11-04] MEDS: LIDOCAINE JELLY 2% 5 ML 1 APPLIC TOP (08:03)
[2019-11-04] MEDS: CHONDROIDTIN/SOD HYALURONATE 1.05 ML SYRINGE INTRAOCULA (08:03)
[2019-11-04] MEDS: MOXIFLOXACIN INJ 5 MG/ML VIAL EYE-OP (08:03)
[2019-11-04] MEDS: TRIAMCINOLONE 50 MG/5 ML VIAL INJ (08:03)
[2019-11-04] MEDS: BALANCED SALT IRRIG SOLN NO.2 500 ML, EPINEPHrine 1 MG IRR (08:04)
[2019-11-04] MEDS: TETRACAINE 0.5% OPHTH DROPS 4 ML 2 DROPS EYE-OP (08:04)
[2019-11-04 08:13] VITALS: BP 75/54; PULSE 68; RESP 16; TEMP 36.8; O2SAT 98
[2019-11-04 08:17] VITALS: BP 84/58
[2019-11-04 08:32] VITALS: BP 85/57; PULSE 70
[2019-11-04 08:45] VITALS: BP 81/50; PULSE 72
[2019-11-04 08:55] VITALS: BP 96/52; PULSE 61; RESP 14; TEMP 36.5; O2SAT 98
--- NOTE | 2019-11-04 10:43 | SUR.PHASEII ---
BP low gradually normalized, pt asymptomatic through out. Left when ready and left in stable condition.
== END 2019-11-04 09:00 | disposition home or self-care (01) ==
PROVIDERS: PCP Internal Medicine; Referring Provider Family Medicine; Visit Provider Ophthalmology
PROC: (CPT 66984; principal; 2019-11-04 07:45)
DX: H25.12 Age-related nuclear cataract, left eye (principal); F32.9 Major depressive disorder, single episode, unspecified; J45.909 Unspecified asthma, uncomplicated; G47.33 Obstructive sleep apnea (adult) (pediatric); I25.10 Atherosclerotic heart disease of native coronary artery without angina pectoris; K21.9 Gastro-esophageal reflux disease without esophagitis
CPT/HCPCS: 66984; J0171; J2250; J3301

== ENCOUNTER → 2019-11-15 13:24 | Outpatient (CLI) | payer OTHER, SELFPAY ==
[2019-11-17 08:16] LABS: COVID19 Sendout Not Detected (Not Detect)
== END ==
PROVIDERS: PCP Internal Medicine; Visit Provider Physician Assistant
DX: Z01.812 Encounter for preprocedural laboratory examination (principal)
CPT/HCPCS: 87635

== ENCOUNTER 2019-11-18 06:24 | Day surgery (SDC) | payer OTHER, SELFPAY ==
[2019-11-18 07:15] VITALS: BP 113/66; PULSE 60; RESP 17; TEMP 36.4; O2SAT 97; BMI 21.2
[2019-11-18] MEDS: PROPARACAINE 0.5% OPHTH SOL 2 DROPS EYE-OP (07:15)
[2019-11-18] MEDS: CATARACT EYE COMPOUND (10 DROPS/SYRINGE) 3 DROPS EYE-OP (07:33)
--- NOTE | 2019-11-18 07:37 | PM.PREOP ---
Pre-operative Note Interval Note History & Physical reviewed/Exam performed by Physician: Yes Changes to H&P: No
--- NOTE | 2019-11-18 07:37 | PM.OP.1 ---
Operative Date/Time/Diagnoses Pre-op diagnosis: Nuclear cataract right eye Procedure & Clinicians Procedure: Cataract Surgery Same procedure as scheduled: Yes Surgeon: Angel Campbell Anesthesia Type: MAC +/- and Sedation Operative Notes Procedure in detail: Patient brought to the operating suite. Tetracaine drops placed in the right eye. Patient was prepped and draped in sterile manner. Wire lid speculum was placed in the eye. Betadine drops were placed on the eye. This was irrigated. Lidocaine jelly was placed on the eye. A paracentesis port was created with a side-port blade. 0.1 mL 1% preservative free lidocaine was injected into the anterior chamber. The anterior chamber was deepened with viscoelastic. 2.6 mm keratome was used to create a temporal clear corneal incision. Cystotome and Utrata forceps were used to create continuous tear capsulorrhexis. Balanced salt solution was used to hydro dissect the nucleus. The phacoemulsification handpiece was inserted and the nucleus was removed using the stop and chop technique. The irrigation aspiration handpiece was inserted and the remaining cortex was removed. Anterior chamber was deepened with viscoelastic. An Tapia ZCB00 intraocular lens with a power of 21.0 was injected into the capsular bag. Irrigation aspiration handpiece was inserted and the remaining viscoelastic was removed. Incision was hydrated with balanced salt solution and found to be leak free with pressure with Weck-Misty sponges. 0.1 mL Vigamox injected anterior chamber. 0.3 mL Kenalog 10 mg was injected subconjunctivally. Lid speculum was removed. The patient left the operating room in excellent condition. Complications: none Post-operative Condition: stable Disposition: same day surgery
[2019-11-18] MEDS: PHENYLEPHRINE/LIDOCAINE VIAL (OR) 0.2 ML EYE-OP (07:50)
[2019-11-18] MEDS: CHONDROIDTIN/SOD HYALURONATE 1.05 ML SYRINGE INTRAOCULA (07:50)
[2019-11-18] MEDS: MOXIFLOXACIN INJ 5 MG/ML VIAL EYE-OP (07:50)
[2019-11-18] MEDS: TRIAMCINOLONE 50 MG/5 ML VIAL INJ (07:50)
[2019-11-18] MEDS: BALANCED SALT IRRIG SOLN NO.2 500 ML, EPINEPHrine 1 MG IRR (07:51)
[2019-11-18] MEDS: LIDOCAINE JELLY 2% 5 ML 1 APPLIC TOP (07:51)
[2019-11-18] MEDS: TETRACAINE 0.5% OPHTH DROPS 4 ML 2 DROPS EYE-OP (07:51)
[2019-11-18 08:25] VITALS: BP 104/46; PULSE 61; RESP 16; TEMP 36.5; O2SAT 97
--- NOTE | 2019-11-18 08:39 | SUR.PHASEII ---
BP better, pt still asymptomatic. Paul called, no answer,no Voice mail, will another number.
--- NOTE | 2019-11-18 08:58 | SUR.PHASEII ---
Late entry: d/c instructions discussed with pt by ROSAURA Valencia. Pt stated she had no questions.
== END 2019-11-18 08:41 | disposition home or self-care (01) ==
LOC: OR 06:26
PROVIDERS: PCP Internal Medicine; Referring Provider Internal Medicine; Visit Provider Ophthalmology
PROC: (CPT 66984; principal; 2019-11-18 07:45)
DX: H25.11 Age-related nuclear cataract, right eye (principal); J44.9 Chronic obstructive pulmonary disease, unspecified; F32.9 Major depressive disorder, single episode, unspecified
CPT/HCPCS: 66984; J0171; J2250; J3301

== ENCOUNTER → 2020-03-17 09:29 | Outpatient (CLI) | payer OTHER, SELFPAY ==
[2020-03-17 10:50] LABS: COVID19 -Nasal RAPID Negative (Negative)
== END ==
PROVIDERS: PCP Internal Medicine; Visit Provider Nurse Practitioner Family
DX: Z01.812 Encounter for preprocedural laboratory examination (principal); Z20.822 Contact with and (suspected) exposure to COVID-19
CPT/HCPCS: 87635

== ENCOUNTER 2020-03-19 12:42 | Day surgery (SDC) | payer OTHER, SELFPAY ==
--- NOTE | 2020-03-19 12:01 | P.HP_ITS ---
History of Present Illness History of Present Illness Date Patient Seen: 03/19/20 Chief complaint: SDC Narrative: 75 year old female comes in today for consideration of a screening colonoscopy. She has had two lifetime colonoscopies. Last colonoscopy in 2017 by SHI Diaz, 2 year recall. Prep was fair. Noted a subtle mm erosion in the cecum that was biopsied, pathology showed minimal chronic inflammation and mucosal edema. Patient had 1 tubular adenoma in the ascending colon, 2 mm, 3 nonbleeding AVMs, diverticula and hemorrhoids. There have been no lower GI symptoms suggesting disease such as change in bowel habits, bleeding, abdominal pain or anemia. There's been no family history of colon cancer or colon polyps. Overall health issues have been stable, including no major cardiac events for at least 6 weeks. 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 Patient History Medical History (Updated 08/13/19 @ 00:01 by ) Acid reflux Arthritis COPD (chronic obstructive pulmonary disease) Depression History of hepatitis A History of hepatitis B Osteoporosis Thyroid disease Surgical History (Updated 08/05/19 @ 15:01 by Eleonora Lang RN) History of bilateral total hip arthroplasty Family & Social History Social History: household members none Tobacco & Substance use: Smoking Status Former smoker alcohol intake current alcohol intake frequency holiday/special occasion Substance Use Type does not use Meds Home Medications and Allergies Home Medications Medication Instructions Recorded Confirmed Type Tirosint 13 mcg PO DAILY 08/05/19 11/18/19 History aspirin 81 mg PO DAILY 08/05/19 11/18/19 History atorvastatin 40 mg PO DAILY 08/05/19 11/18/19 History fluoxetine 20 mg PO DAILY 08/05/19 11/18/19 History metoprolol succinate 25 mg PO DAILY 08/05/19 11/18/19 History Allergies Allergy/AdvReac Type Severity Reaction Status Date / Time No Known Drug Allergies Allergy Verified 11/15/19 13:23 Review of Systems Review of Systems ROS: Yes All systems reviewed with the patient and are negative except as otherwise documented Exam Narrative Exam Narrative: GENERAL: Alert and oriented, appearing stated age and in no acute distress. HEENT: Head normocephalic/atraumatic. Pupils equal, round, and reactive to light and accomodation. Extraocular muscles intact. Tympanic membranes clear. Nasal mucosa moist, septum midline. Oral mucosa moist, no lesions. Neck soft and supple, no lymphadenopathy. LUNGS: Clear to ausculation bilaterally, no wheezes, rhonchi or rales. CV: Normal S1 and S2 with regular rate and rhythm, no audible murmurs, rubs or gallops. ABDOMEN: Soft, non-tender, non-distended, no organomegaly. Positive bowel sounds. EXTREMITIES: No clubbing, cyanosis, or edema. NEURO: Cranial nerves II through XII grossly intact, no focal deficits. PSYCH: Alert and oriented x 3. SKIN: No concerning lesions. Assessment & Plan Assessment & Plan narrative: 1. History of colon polyps 2. Screening for colon cancer 3. History of AVMs 4. History of diverticulosis 5. History of hemorrhoids Plan for colonoscopy. The nature and character of the procedure as well as anticipated results were discussed. The possibility of not completing the procedure was also discussed. Possible complications including aspiration pneumonia, bleeding, perforation and reaction to medications either for sedation or preparation and missed lesions were discussed. Questions were answered and proceeding to the colonoscopy was elected. Informed consent signed. I sincerely appreciate the referral allowing me to participate in this patient's care. Please contact me with any questions or concerns.
--- NOTE | 2020-03-19 12:19 | P.OP.ENDO_ITS ---
Operative Date/Time/Diagnoses Date of procedure: 03/19/20 Procedure Notes SCOAP/Timeout: 4:28 p.m. Procedure in detail: ENDOSCOPIST: Mariann Martin MD Anesthesiologist: Dr. Woodson Sedation start time: 4:29 p.m. Sedation end time: 4:51 p.m. PROCEDURE: Colonoscopy with biopsy INDICATIONS: 1. History of colon polyps 2. Screening for colon cancer 3. History of AVMs 4. History diverticulosis 5. History of hemorrhoids MEDICATION: Levsin 0.125 mg sublingual, titrated doses of propofol until appropriate level sedation achieved. ASA CLASS: 3 CECAL WITHDRAWAL TIME: 9 minutes COMPLICATIONS: None. EXTENT OF PROCEDURE: Cecum. QUALITY OF PREP: Good with portions of liquid stool. PROCEDURE: Prior to insertion of the colonoscope, a digital rectal examination was accomplished with circumferential palpation of the distal rectal mucosa without significant findings being noted. The high-definition pediatric colonoscope was passed into the rectum in the usual fashion and advanced over to the cecum without difficulty. The ileocecal valve, appendiceal stoma, and medial wall all could be inspected and a 6-7 mm AVM was seen, nonbleeding. ASCENDING COLON: As the colonoscope was withdrawn, care was taken to expose and inspect the haustral folds and a 1 cm AVM was seen, nonbleeding HEPATIC FLEXURE: Normal, no polyps, diverticula or other abnormalities. TRANSVERSE COLON: A 1 cm AVM was seen, nonbleeding. Otherwise, normal no poly ps, diverticula or other abnormalities. DESCENDING COLON: Normal, no polyps, diverticula or other abnormalities. SIGMOID COLON: Scattered diverticulosis, minor. Otherwise, no polyps, or other abnormalities. RECTUM: Normal. J maneuver was produced. There was no significant perianal disease. The J maneuver was broken. The remainder of the rectum was inspected and there was minor external hemorrhoid disease. The scope was withdrawn. IMPRESSION: 1. AVM x 3, 7-10 mm, cecum, ascending, and transverse colon, nonbleeding. 2. Diverticulosis, minor, sigmoid 3. External hemorrhoids minor, non-thrombosed PLAN: 1. Repeat colonoscopy in 5 years. May consider aging out of colonoscopies at this point. The possibility of a missed lesion including a malignancy has been discussed with the patient previously. Potential alarm symptoms have been discussed and should be reported immediately.
[2020-03-19] MEDS: LACTATED RINGERS 1,000 ML 200 ML IV ×2 (13:11→17:05)
[2020-03-19] MEDS: HYOSCYAMINE 0.125 MG TABLET PO (13:12)
[2020-03-19 13:13] VITALS: BP 120/66; PULSE 55; RESP 13; TEMP 36.6; O2SAT 96; BMI 24.3
[2020-03-19 16:57] VITALS: BP 90/70; PULSE 114; RESP 21; TEMP 36.6; O2SAT 96
[2020-03-19 17:00] VITALS: BP 100/67; PULSE 120; RESP 19; O2SAT 99
[2020-03-19 17:06] VITALS: BP 110/61; PULSE 113; RESP 27; O2SAT 94
[2020-03-19 17:10] VITALS: BP 113/73; PULSE 53; RESP 15; O2SAT 98
[2020-03-19 17:15] VITALS: BP 116/73; PULSE 86; RESP 11; TEMP 36.7; O2SAT 100
== END 2020-03-19 17:27 | disposition home or self-care (01) ==
PROVIDERS: PCP Internal Medicine; Referring Provider Student in an Organized Health Care Education/Training Program; Visit Provider Student in an Organized Health Care Education/Training Program
PROC: 0DJD8ZZ Inspection of Lower Intestinal Tract, Via Natural or Artificial Opening Endoscopic (ICD-10-PCS; CPT 45378; principal; 2020-03-19 13:45)
DX: Z12.11 Encounter for screening for malignant neoplasm of colon (principal); Z86.010 Personal history of colon polyps; K21.9 Gastro-esophageal reflux disease without esophagitis; I25.10 Atherosclerotic heart disease of native coronary artery without angina pectoris; I10 Essential (primary) hypertension; G47.33 Obstructive sleep apnea (adult) (pediatric); K64.4 Residual hemorrhoidal skin tags; K57.30 Diverticulosis of large intestine without perforation or abscess without bleeding; Q27.33 Arteriovenous malformation of digestive system vessel
CPT/HCPCS: G0105; 93005; 93010

== ENCOUNTER → 2021-05-13 09:06 | Outpatient (CLI) | payer OTHER, SELFPAY ==
--- NOTE | 2021-05-13 09:52 | DI.CT.S_ITS ---
PROCEDURE: CT ABDOMEN PELVIS W CON INDICATIONS: Abnormal levels of other serum enzymes TECHNIQUE: After the administration of oral and IV contrast, axial sections were acquired from the lung bases to the pubic symphysis. Coronal and sagittal reformats were performed. For radiation dose reduction, the following was used: automated exposure control, adjustment of mA and/or kV according to patient size. COMPARISON: [facility], CT, CT ABDOMEN W CON, 04/15/2019, 10:05. FINDINGS: Image quality: Excellent. Lung bases: Unremarkable. Heart: No significant findings. ABDOMEN: Liver: Unremarkable. Gallbladder: Unremarkable. Biliary ducts: Unremarkable. Pancreas: No acute peripancreatic inflammatory changes. Pancreas divisum is noted, a developmental variant. No pancreatic ductal dilatation. No pseudocyst or abscess. Spleen: Unremarkable. Adrenal Glands: Unremarkable. Kidneys and Ureters: Unremarkable. Stomach and Bowel: Multiple diverticula are seen in the colon without signs of acute diverticulitis. Probable small diverticulum in the gastric fundus. Peritoneum: No abnormal intraperitoneal fluid. No free air. Ventral Wall: No hernia. Abdominal Nodes: No retroperitoneal or mesenteric adenopathy by size criteria. Vessels: Aorta and inferior vena cava are normal in size. PELVIS: Pelvic Organs: Unremarkable. Bladder: Unremarkable. Pelvic Nodes: No enlarged lymph nodes. Miscellaneous: No inguinal hernias are seen. 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 Multilevel degenerative changes in the spine. IMPRESSION: 1. No acute abnormality identified in the abdomen or pelvis. No peripancreatic edema is seen to suggest acute pancreatitis. 2. Pancreas divisum is noted, a developmental variant that may predispose to pancreatitis. 3. Colonic diverticulosis. Dictated by: Alberto Adame M.D. on 05/13/2021 at 12:09 Approved by: Alberto Adame M.D. on 05/13/2021 at 12:18
== END ==
PROVIDERS: PCP Internal Medicine; Referring Provider Internal Medicine; Visit Provider Internal Medicine
DX: R74.8 Abnormal levels of other serum enzymes (principal); K57.90 Diverticulosis of intestine, part unspecified, without perforation or abscess without bleeding
CPT/HCPCS: 74177

== ENCOUNTER → 2021-05-30 09:44 | Outpatient (CLI) | payer OTHER, SELFPAY ==
--- NOTE | 2021-05-30 09:45 | DI.MG.S_ITS ---
BILATERAL DIGITAL SCREENING MAMMOGRAM 3D/2D WITH CAD: 05/30/2021 CLINICAL: Routine screening. Comparison is made to exams dated: 12/09/2018 mammogram, 01/02/2017 mammogram, and 08/19/2012 mammogram - [facility]. The tissue of both breasts is heterogeneously dense. This may lower the sensitivity of mammography. Current study was also evaluated with a Computer Aided Detection (CAD) system. No significant masses, calcifications, or other findings are seen in either breast. There has been no significant interval change. IMPRESSION: NEGATIVE There is no mammographic evidence of malignancy. A 1 year screening mammogram is recommended. This exam was interpreted at Station ID: [id number]. NOTE: For mammograms, a report in lay terms will be sent to the patient. Approximately 15% of breast malignancies will not be visualized mammographically. In the management of a palpable breast mass, a negative mammogram must not discourage biopsy of a clinically suspicious lesion. Electronically Signed By: Keaton mejia/gosia:05/30/2021 12:08:56 letter sent: Normal Exam ACR BI-RADS Category 1: Negative [id number]
== END ==
PROVIDERS: PCP Internal Medicine; Referring Provider Internal Medicine; Visit Provider Internal Medicine
DX: Z12.31 Encounter for screening mammogram for malignant neoplasm of breast (principal); Z13.820 Encounter for screening for osteoporosis; Z78.0 Asymptomatic menopausal state; M81.0 Age-related osteoporosis without current pathological fracture
CPT/HCPCS: 77063; 77067; 77080

== ENCOUNTER → 2021-07-14 09:01 | Outpatient (CLI) | payer OTHER, SELFPAY ==
--- NOTE | 2021-07-14 | DI.ECHO.S_ITS ---
[facility]---------+ [facility] +---------+ : : [address] : : : : [id number] : : : : Phone: [phone]+ Echocardiogram Report + + :Name: MIGUEL HERRMANN Study Date: 07/14/2021 Height: 68 in : :[facility] ReadingLocation: Weight: 142 lb : : Gender: Female BSA: 1.8 m2 : :: 1945 Age: 76 yrs BP: 122/67 mmHg: :Reason For Study: Cardiomyopathy : :Ordering Physician: ANDREI, : :CASSIA Performed By: Harsh Kline : :Referring: CASSIA FORBES : + + Interpretation Summary The left ventricle is normal in size and wall thickness. The ejection fraction is estimated to be 40-45%. There has been no significant change in LVEF since the previous exam. The right ventricle is normal in size and function. There is mild tricuspid regurgitation. Compared to the prior echo exam, there has been no change in TR severity. The right ventricular systolic pressure is estimated to be at least 20 mmHg based on an estimated right atrial pressure of 3 mm Hg. Procedure: A two-dimensional transthoracic echocardiogram with color flow and Doppler was performed. The study quality was technically adequate. Comparison is made with the echocardiogram of 10/16/2019. The patient was in normal sinus rhythm during the exam. Left Ventricle: The left ventricle is normal in size and wall thickness. There is no thrombus. A false chord is noted (normal variant). Left ventricular systolic function is mildly reduced. The ejection fraction is estimated to be 40-45%. There has been no significant change since the previous exam. There is mild global hypokinesis of the left ventricle. Diastolic parameters suggest a relaxation abnormality of the left ventricle, consistent with probable normal filling pressures. Right Ventricle: The right ventricle is normal in size and function. Atria: Both atria are normal in size. Both atria have remained unchanged in size since the prior echo exam. The interatrial septum grossly appears intact with no obvious evidence for an atrial septal defect. The atrial septum is aneurysmal. There has been no significant change since the previous study. Mitral Valve: The mitral valve is normal in structure and function. There is trace mitral regurgitation. There has been no significant change since the previous study. Aortic Valve: There is mild aortic valve sclerosis. There is no aortic valve stenosis. There is trace aortic regurgitation. There has been no significant change since the previous study. Tricuspid Valve: The tricuspid valve is normal. There is mild tricuspid regurgitation. The right ventricular systolic pressure is estimated to be at least 20 mmHg based on an estimated right atrial pressure of 3 mm Hg. Compared to the prior echo exam, there has been no change in TR severity. Pulmonic Valve: The pulmonic valve is normal in structure and function. There is trace pulmonic regurgitation. Great Vessels: The aortic root is normal size. The dimensions of the ascending aorta are normal. The IVC is of normal diameter and collapses greater than 50% with a sniff. This suggests a low right atrial pressure of 3 mm Hg. Pericardium/ Pleura There is no pericardial effusion. There is no pleural effusion. MMode/2D Measurements & Calculations LVIDd: 5.3 cm LVOT diam: 2.4 cm LVIDs: 4.0 cm Ao root diam: 3.5 cm FS: 24.5 % asc Aorta Diam: 3.4 cm IVSd: 0.80 cm LVPWd: 0.70 cm LV roth. diameter/BSA (cm/m^2): 3.0 LV sys. diameter/BSA (cm/m^2): 2.3 LA dimension: 3.3 cm RA long axis: 4.6 cm LA A2 area: 18.8 cm2 LA A4 area: 17.0 cm2 LA length (vol): 5.1 cm LA vol: 53.3 ml LA vol index: 30.2 ml/m2 LVLs ap4: 6.9 cm LVLd ap2: 7.8 cm LVLs ap2: 6.8 cm TAPSE_phl: 2.2 cm Doppler Measurements & Calculations Ao V2 max: 118.0 cm/sec LVOT Max Alden: 89.4 cm/sec Ao V2 mean: 83.1 cm/sec LV V1 max P.2 mmHg Ao max P.0 mmHg LV V1 VTI: 18.0 cm Ao mean P.0 mmHg RADHA(I,D): 3.6 cm2 Ao V2 VTI: 22.7 cm RADHA(V,D): 3.4 cm2 sev ratio: 0.79 RADHA indexed to BSA (cm^2/m^2): 2.0 MV E max alden: 49.3 cm/sec TR max alden: 208.0 cm/sec MV A max alden: 82.3 cm/sec TR max P.3 mmHg MV E/A: 0.60 Med Peak E' Alden: 7.1 cm/sec E/E' med: 7.0 Lat Peak E' Alden: 6.3 cm/sec E/E' lat: 7.8 E/e' average: 7.4 MV dec time: 0.30 sec SV(LVOT): 81.4 ml AV VR_phl: 0.76 RADHA(VTI)/BSA_phl: 2.0 MV P1/2t-pr_phl: 87.0 msec Reading Physician:05:03 PM
== END ==
PROVIDERS: PCP Internal Medicine; Referring Provider Internal Medicine Cardiovascular Disease; Visit Provider Internal Medicine Cardiovascular Disease
DX: I08.2 Rheumatic disorders of both aortic and tricuspid valves (principal); I42.9 Cardiomyopathy, unspecified
CPT/HCPCS: 93306

== ENCOUNTER → 2022-06-07 09:57 | Outpatient (CLI) | payer OTHER, SELFPAY ==
--- NOTE | 2022-06-07 10:05 | DI.DEXA.S_ITS ---
Bone Density Report Name: MIGUEL HERRMANN Age: 77 Sex: Female Ethnicity: White Date of : 1945 Indication: postmenopausal osteoporosis; Referring Provider: EUSEBIO GARCÍA Study: Bone densitometry was performed. Exam Date: June 07, 2022 Accession number: [id number] Bone Density: Region BMD T-score Z-score Classification AP Spine(L1, L2, L4) 1.101 0.6 3.1 Normal Total Forearm (Left) 0.383 -3.6 -1.0 Osteoporosis 1/3 Forearm (Left) 0.498 -3.3 -0.6 Osteoporosis UD Forearm (Left) 0.282 -2.8 -0.9 Osteoporosis World Health Organization criteria for BMD impression classify patients as: Normal (T-score at or above -1.0), Osteopenia (T-score between -1.0 and -2.5), or Osteoporosis (T-score at or below -2.5). Previous Exams: -- Region Exam Age BMD T-score BMD Change BMD Change Date g/cm2 vs Baseline vs Previous -- AP Spine (L1-L2,L4) 06/07/2022 77 1.101 0.6 0.016 (1.5%)# 0.016 (1.5%)# 05/30/2021 76 1.084 0.5 1/3 Forearm (Left) 06/07/2022 77 0.498 -3.3 -0.018 (-3.5%) -0.018 (-3.5%) 05/30/2021 76 0.516 -3.0 -- *Denotes significance at 95% confidence level, LSC for AP Spine = 0.022 g/cm2, LSC for 1/3 Forearm = 0.023 g/cm2 # Denotes dissimilar scan types or analysis methods Impression: The patient has normal bone mass. No significant bone loss was observed. Discussion: LOW RISK OF FRACTURE; BONE DENSITY IS WELL ABOVE THE MINIMUM DESIRABLE LEVEL AND ABOVE AVERAGE FOR AGE AND SEX AT ALL SKELETAL SITES TESTED. This person's bone density is above expected limits for age and sex. This is rarely clinically significant, but should be pursued if there are significant musculoskeletal complaints. The patient should follow a healthful lifestyle (good nutrition with adequate calcium and vitamin D, and appropriate weight-bearing exercise). Follow-Up: Consider repeating this study in 5 years or sooner if there is some new clinical indication. Reported by: DINH JONES MD on 06/07/2022 10:14:00 AM.
== END ==
PROVIDERS: PCP Internal Medicine; Referring Provider Internal Medicine; Visit Provider Internal Medicine
DX: Z78.0 Asymptomatic menopausal state (principal); M81.0 Age-related osteoporosis without current pathological fracture; Z79.83 Long term (current) use of bisphosphonates
CPT/HCPCS: 77080

== ENCOUNTER → 2023-03-08 | Outpatient (CLI) | payer OTHER, SELFPAY ==
--- NOTE | 2023-03-08 | DI.RAD.S_ITS ---
Bone Density Report Name: MIGUEL HERRMANN Age: 78 Sex: Female Ethnicity: White Date of : 1945 Indication: postmenopausal osteoporosis; Referring Provider: EUSEBIO GARCÍA Study: Bone densitometry was performed. Exam Date: March 08, 2023 Accession number: [id number] Bone Density: Region BMD T-score Z-score Classification AP Spine(L1, L2, L4) 1.129 0.9 3.4 Normal Total Forearm (Left) 0.402 -3.3 -0.6 Osteoporosis 1/3 Forearm (Left) 0.511 -3.1 -0.3 Osteoporosis UD Forearm (Left) 0.287 -2.7 -0.7 Osteoporosis World Health Organization criteria for BMD impression classify patients as: Normal (T-score at or above -1.0), Osteopenia (T-score between -1.0 and -2.5), or Osteoporosis (T-score at or below -2.5). Previous Exams: -- Region Exam Age BMD T-score BMD Change BMD Change Date g/cm2 vs Baseline vs Previous -- AP Spine (L1-L2,L4) 03/08/2023 78 1.129 0.9 0.024 (2.2%)# 0.029 (2.6%)* 06/07/2022 77 1.101 0.6 -0.004 (-0.4%)# 0.016 (1.5%)# 05/30/2021 76 1.084 0.5 -0.020 (-1.8%)# 0.031 (2.9%)# 09/17/2018 73 1.053 0.2 -0.051 (-4.7%)* 0.055 (5.5%)* 01/02/2017 71 0.998 -0.3 -0.106 (-9.6%)* -0.106 (-9.6%)* 06/01/2006 61 1.105 0.6 1/3 Forearm(Left) 03/08/2023 78 0.511 -3.1 -0.005 (-1.0%) 0.013 (2.5%) 06/07/2022 77 0.498 -3.3 -0.018 (-3.5%) -0.018 (-3.5%) 05/30/2021 76 0.516 -3.0 -- *Denotes significance at 95% confidence level, LSC for AP Spine = 0.022 g/cm2, LSC for 1/3 Forearm = 0.023 g/cm2 Rate of change results reflect vertebral levels common to all scans # Denotes dissimilar scan types or analysis methods Impression: The patient has normal bone mass. No significant bone loss was observed. Discussion: LOW RISK OF FRACTURE; BONE DENSITY IS WELL ABOVE THE MINIMUM DESIRABLE LEVEL AND ABOVE AVERAGE FOR AGE AND SEX AT ALL SKELETAL SITES TESTED. This person's bone density is above expected limits for age and sex. This is rarely clinically significant, but should be pursued if there are significant musculoskeletal complaints. The patient should follow a healthful lifestyle (good nutrition with adequate calcium and vitamin D, and appropriate weight-bearing exercise). Follow-Up: Consider repeating this study in 5 years or sooner if there is some new clinical indication. Reported by: MAYO NUÑEZ M.D. on 03/08/2023 11:30:00 AM.
== END ==
PROVIDERS: PCP Internal Medicine; Referring Provider Internal Medicine; Visit Provider Internal Medicine
DX: Z78.0 Asymptomatic menopausal state (principal); M81.0 Age-related osteoporosis without current pathological fracture
CPT/HCPCS: 77080; 77081

== ENCOUNTER → 2023-03-27 13:43 | Outpatient (CLI) | payer OTHER, SELFPAY ==
--- NOTE | 2023-03-27 | DI.ECHO.S_ITS ---
[facility] +---------+ [facility] +---------+ : : [address] : : : : [id number] : : : : Phone: [phone]+ Echocardiogram Report + + :Name: MIGUEL HERRMANN Study Date: 03/27/2023 Height: 68 in : :[facility] ReadingLocation: Weight: 173 lb : : Gender: Female BSA: 1.9 m2 : :: 1945 Age: 78 yrs BP: 115/62 mmHg: :Reason For Study: DILATED CARDIOMYOPATHY : :Ordering Physician: ESTEBAN, : :STEFANY Ayers Performed By: Raine Soni : :Referring: STEFANY ORELLANA : + + Interpretation Summary The left ventricle is normal in size and wall thickness. The left ventricular ejection fraction is normal. The ejection fraction is estimated to be 55-60%. Previously LVEF 40 to 45% Compared to the prior exam, the left ventricular function is improved. The right ventricle is normal in size and function. No significant valvular pathology seen. The IVC is of normal diameter and collapses greater than 50% with a sniff. This suggests a low right atrial pressure of 3 mm Hg. Procedure: A two-dimensional transthoracic echocardiogram with color flow and Doppler was performed. The study quality was technically adequate. Comparison is made with the echocardiogram of 07/14/2021. The patient was in 69-76 during the exam. The patient was in normal sinus rhythm during the exam. Left Ventricle: The left ventricle is normal in size and wall thickness. There is no thrombus. The left ventricular ejection fraction is normal. The ejection fraction is estimated to be 55-60%. Compared to the prior exam, the left ventricular function is improved. There are no focal wall motion abnormalities. Diastolic parameters suggest a relaxation abnormality of the left ventricle, consistent with probable normal filling pressures. Right Ventricle: The right ventricle is normal in size and function. Atria: The left atrial size is normal. Right atrial size is normal. There is no Doppler evidence for an interatrial shunt. The atrial septum is aneurysmal. There has been no significant change since the previous study. Mitral Valve: The mitral valve is normal in structure and function. There is trace mitral regurgitation. Aortic Valve: The aortic valve is trileaflet. The aortic valve opens well. There is no aortic valve stenosis. There is trace aortic regurgitation. Compared to the prior echo study, there has been no change in the severity of aortic regurgitation. Tricuspid Valve: The tricuspid valve is normal in structure and function. There is trace tricuspid regurgitation. The right ventricular systolic pressure is estimated to be at least 23 mmHg based on an estimated right atrial pressure of 3 mm Hg. Compared to the prior echo exam, there has been a decrease in TR severity. Pulmonic Valve: The pulmonic valve leaflets are thin and pliable; valve motion is normal. There is mild pulmonic regurgitation. Great Vessels: The aortic root is normal size. The dimensions of the ascending aorta are normal. The IVC is of normal diameter and collapses greater than 50% with a sniff. This suggests a low right atrial pressure of 3 mm Hg. Pericardium/ Pleura There is no pericardial effusion. There is no pleural effusion. MMode/2D Measurements & Calculations LVIDd: 5.1 cm LVOT diam: 2.2 cm LVIDs: 3.4 cm Ao root diam: 3.5 cm FS: 32.5 % asc Aorta Diam: 3.6 cm EPSS: 0.44 cm Ao Arch Diam (Prox Trans): 3.1 cm IVSd: 0.76 cm LVPWd: 0.71 cm LV roth. diameter/BSA (cm/m^2): 2.6 LV sys. diameter/BSA (cm/m^2): 1.8 LA A2 area: 19.1 cm2 RA long axis: 5.0 cm LA A4 area: 16.6 cm2 RA area: 15.5 cm2 LA length (vol): 4.9 cm RA vol: 40.6 ml LA vol: 55.1 ml RA : 21.1 ml/m2 LA vol index: 28.7 ml/m2 IVC diam: 1.3 cm RVD1 (basal): 3.8 cm RVD2 (mid): 3.2 cm TAPSE: 2.1 cm Doppler Measurements & Calculations Ao V2 max: 110.5 cm/sec LVOT Max Alden: 102.0 cm/sec Ao V2 mean: 80.9 cm/sec LV V1 max P.2 mmHg Ao max P.9 mmHg LV V1 VTI: 19.9 cm Ao mean P.9 mmHg RADHA(I,D): 3.3 cm2 Ao V2 VTI: 22.8 cm RADHA(V,D): 3.5 cm2 sev ratio: 0.87 RADHA indexed to BSA (cm^2/m^2): 1.7 MV E max alden: 62.5 cm/sec TR max alden: 224.7 cm/sec MV A max alden: 71.5 cm/sec TR max P.2 mmHg MV E/A: 0.87 PA V2 max: 89.0 cm/sec Med Peak E' Alden: 8.4 cm/sec PA V2 mean: 69.2 cm/sec E/E' med: 7.4 PA mean P.0 mmHg Lat Peak E' Alden: 5.9 cm/sec PA pr(Accel): 10.5 mmHg E/E' lat: 10.5 E/e' average: 9.0 MV dec time: 0.20 sec SV(LVOT): 75.9 ml Reading Physician:10:34 AM
== END ==
PROVIDERS: PCP Internal Medicine; Referring Provider Nurse Practitioner; Visit Provider Nurse Practitioner
DX: I37.1 Nonrheumatic pulmonary valve insufficiency (principal); I42.0 Dilated cardiomyopathy
CPT/HCPCS: 93306